=== PATIENT | male | born 1940 | race Caucasian/White ===

== ENCOUNTER 2018-01-30 17:36 | Observation (INO) | payer OTHER ==
[2018-01-30] MEDS ORDERED: ACETAMINOPHEN 325 MG TAB ONE (17:55)
[2018-01-30] MEDS ORDERED: ACETAMINOPHEN 325 MG TAB PO ONE (17:58)
[2018-01-30] MEDS ORDERED: NS 1,000 ML IV ONE ×2 (17:58→19:01)
--- NOTE | 2018-01-30 18:01 | EDPHY ---
H & P Time Seen by Provider: 01/30/18 17:47 HPI/ROS: CHIEF COMPLAINT: Generalized weakness HISTORY OF PRESENT ILLNESS: 77-year-old male presents with generalized weakness. Onset of generalized weakness, associated with confusion this morning. Difficulty walking because of generalized weakness and underlying gait disturbance. Associated with decreased oral intake. The symptoms have been persistent today. No recent cough, URI, chest pain, abdominal pain or shortness of breath. History of a shuffling gait, on levodopa. REVIEW OF SYSTEMS: complete 10 point ROS reviewed and is negative except at noted in the HPI Exam Limitations: Clinical condition - Social History Alcohol Use: Sober Drug Use: None Additional Social History: Lives in own home with - Physical Exam Exam: General Appearance: Alert, confused, ill-appearing Eyes: Pupils equal and round, no conjunctival pallor ENT, Mouth: Mucous membranes dry Neck: Normal inspection Respiratory: Tachypnea, Lungs are clear to auscultation Cardiovascular: Regular tachycardia Gastrointestinal: Abdomen is soft and nontender Neurological: A&O, nonfocal exam Skin: Warm and dry, no rash Extremities: Normal inspection, no tenderness Psychiatric: Flat affect Constitutional: Initial Vital Signs Temperature (C) 38.4 C H 01/30/18 17:55 Heart Rate 119 H 01/30/18 17:55 Respiratory Rate 30 H 01/30/18 17:55 Blood Pressure 145/95 H 01/30/18 17:55 O2 Sat (%) 93 01/30/18 17:55 O2 Delivery Mode Room Air Allergies/Adverse Reactions: No Known Allergies Allergy (Unverified 01/30/18 18:03) Home Medications: Medication Instructions Recorded QUEtiapine FUMARATE 01/30/18 Sinemet 10/100 MG (*) 01/30/18 ZOLPIDEM TARTRATE 01/30/18 Medical Decision Making - Diagnostics EKG Interpretation: EKG interpreted by me reveals sinus tachycardia, rate 123,, slight ST segment depression laterally, significant artifact present. Interpretation: Borderline EKG Imaging Results: Imaging Impressions Chest X-Ray 01/30/18 17:58 Impression: Bibasilar atelectasis. No pneumonia or effusion. ED Course/Re-evaluation: This patient presents with fever, confusion and tachycardia. IV normal saline 1 L and Tylenol 650 mg orally given. No localizing signs of infection on exam. I-STAT lactate is normal. Remains tachycardic after the 1st L of normal saline. A 2nd L of normal saline given. Chest x-ray independently reviewed by me reveals no acute disease and dip urinalysis is negative. The patient was reassessed and is clearly better after defervesced since and IV fluids. Heart rate is in the 90s, blood pressure normal, afebrile. No longer confused. However, he remains a fall risk, given underlying gait abnormality and febrile illness. Discussed with the patient and his family, feel that he would be a fall risk at home. Will admit for observation overnight. No antibiotics given , given lack of unclear etiology of fever. Hospitalist service was consulted for admission. Differential Diagnosis: Differential diagnosis includes pyelonephritis, cholecystitis, influenza, cellulitis, pneumonia, abscess, meningitis. - Data Points Laboratory Results: Laboratory Results 01/30/18 17:50 01/30/18 17:50 01/30/18 01/30/18 01/30/18 19:30 17:50 17:50 WBC RBC Hgb Hct MCV MCH MCHC RDW Plt Count MPV Neut % (Auto) Lymph % (Auto) Gates % (Auto) Eos % (Auto) Baso % (Auto) Nucleat RBC Rel Count Absolute Neuts (auto) Absolute Lymphs (auto) Absolute Monos (auto) Absolute Eos (auto) Absolute Basos (auto) Absolute Nucleated RBC Immature Gran % Immature Gran # RBC/WBC/PLT Morphology Platelet Estimate PT 14.7 SEC SEC (12.0-15.0) INR 1.13 (0.83-1.16) APTT 30.3 SEC SEC (23.0-38.0) D-Dimer Pending VBG Lactic Acid Sodium Potassium Chloride Carbon Dioxide Anion Gap BUN Creatinine Estimated GFR Glucose Calcium Total Bilirubin Urine Color ANAND Urine Appearance HAZY Urine pH 5.0 (5.0-7.5) Ur Specific [place] 1.027 (1.002-1.030) Urine Protein 2+ H (NEGATIVE) Urine Ketones TRACE H (NEGATIVE) Urine Blood NEGATIVE (NEGATIVE) Urine Nitrate NEGATIVE (NEGATIVE) Urine Bilirubin NEGATIVE (NEGATIVE) Urine Urobilinogen 4.0 EU H EU (0.2-1.0) Ur Leukocyte Esterase NEGATIVE (NEGATIVE) Urine RBC Pending Urine WBC Pending Ur Epithelial Cells Pending Urine Glucose NEGATIVE (NEGATIVE) 09/13/18 09/13/18 09/13/18 17:50 17:50 17:50 WBC 6.87 10^3/uL 10^3/uL (3.80-9.50) RBC 6.10 10^6/uL 10^6/uL (4.40-6.38) Hgb 17.8 g/dL H g/dL (13.7-17.5) Hct 51.3 % H % (40.0-51.0) MCV 84.1 fL fL (81.5-99.8) MCH 29.2 pg pg (27.9-34.1) MCHC 34.7 g/dL g/dL (32.4-36.7) RDW 13.2 % % (11.5-15.2) Plt Count 191 10^3/uL 10^3/uL (150-400) MPV 11.2 fL fL (8.7-11.7) Neut % (Auto) 89.9 % H % (39.3-74.2) Lymph % (Auto) 4.9 % L % (15.0-45.0) Gates % (Auto) 4.5 % % (4.5-13.0) Eos % (Auto) 0.0 % L % (0.6-7.6) Baso % (Auto) 0.3 % % (0.3-1.7) Nucleat RBC Rel Count 0.0 % % (0.0-0.2) Absolute Neuts (auto) 6.18 10^3/uL 10^3/uL (1.70-6.50) Absolute Lymphs (auto) 0.34 10^3/uL L 10^3/uL (1.00-3.00) Absolute Monos (auto) 0.31 10^3/uL 10^3/uL (0.30-0.80) Absolute Eos (auto) 0.00 10^3/uL L 10^3/uL (0.03-0.40) Absolute Basos (auto) 0.02 10^3/uL 10^3/uL (0.02-0.10) Absolute Nucleated RBC 0.00 10^3/uL 10^3/uL (0-0.01) Immature Gran % 0.4 % % (0.0-1.1) Immature Gran # 0.03 10^3/uL 10^3/uL (0.00-0.10) RBC/WBC/PLT Morphology TNP Platelet Estimate TNP PT INR APTT D-Dimer VBG Lactic Acid 1.7 mmol/L mmol/L (0.7-2.1) Sodium 135 mEq/L mEq/L (135-145) Potassium 4.0 mEq/L mEq/L (3.3-5.0) Chloride 103 mEq/L mEq/L (97-110) Carbon Dioxide 18 mEq/l L mEq/l (22-31) Anion Gap 14 mEq/L mEq/L (8-16) BUN 20 mg/dL mg/dL (7-23) Creatinine 1.1 mg/dL mg/dL (0.7-1.3) Estimated GFR > 60 Glucose 137 mg/dL H mg/dL (70-100) Calcium 9.5 mg/dL mg/dL (8.5-10.4) Total Bilirubin 1.3 mg/dL mg/dL (0.1-1.4) Urine Color Urine Appearance Urine pH Ur Specific [place] Urine Protein Urine Ketones Urine Blood Urine Nitrate Urine Bilirubin Urine Urobilinogen Ur Leukocyte Esterase Urine RBC Urine WBC Ur Epithelial Cells Urine Glucose Medications Given: Discontinued Medications Acetaminophen (Tylenol) 650 mg PO EDNOW ONE Stop: 01/30/18 17:59 Last Admin: 01/30/18 18:01 Dose: 650 mg Sodium Chloride (Ns) 1,000 mls @ 0 mls/hr IV ONCE ONE; Wide Open PRN Reason: Protocol Stop: 01/30/18 17:59 Last Admin: 01/30/18 18:02 Dose: 1,000 mls Sodium Chloride (Ns) 1,000 mls @ 0 mls/hr IV ONCE ONE; Wide Open PRN Reason: Protocol Stop: 01/30/18 19:02 Last Admin: 01/30/18 19:13 Dose: 1,000 mls Departure - Departure Disposition: [facility] Acute Clinical Impression: Febrile illness, acute, Confusion Condition: Fair
[2018-01-30 18:11] LABS: PLATELET COUNT 191 10^3/uL (150-400)
[2018-01-30 18:27] LABS: INR 1.13 (0.83-1.16); PROTIME(PATIENT) 14.7 SEC (12.0-15.0)
--- NOTE | 2018-01-30 19:29 | CPEKG ---
Test Reason : OPEN Blood Pressure : / mmHG Vent. Rate : 123 BPM Atrial Rate : 125 BPM P-R Int : 165 ms QRS Dur : 092 ms QT Int : 310 ms P-R-T Axes : 064 026 -34 degrees QTc Int : 444 ms Sinus tachycardia Probable left atrial enlargement significant artifact Confirmed by Marbella Mix ([id number]) on 01/30/2018 7:29:23 PM Referred By: Confirmed By:Marbella Mix
[2018-01-30] MEDS ORDERED: IOPAMIDOL (ISOVUE 370) 100 ML BTL IV ONE (20:42)
--- NOTE | 2018-01-30 22:19 | SOAPPROG ---
SOAP Progress Note Assessment/Plan: Assessment: Plan: 01/30/18 22:35 Fever, confusion, weakness: resolved following fluids, tylenol, so possibly related to dehydration. No suggestion infection, PE. Will observe and recheck CBC, BMP in morning. Elevated d-dimer: neg CTA chest. Will check doppler US of legs in morning. Cystic hepatic lesion on CT: incompletely visualized on CT. Asymptomatic. Will check office chart to see if this has been noted before. Parkinsonian syndrome: Has had shuffling gait for a year, and problems with dizziness and balance for at least [address] Tobar. Per family, no symptom improvement with Sinemet. Helped most by PT. Hypertension: recently started on irbesartan Insomnia: on zolpidem, quetiapine, melatonin DVT prophylaxis: SCDs Dispo: admit to observation. If remains stable, likely home tomorrow. 01/30/18 22:49 01/30/18 23:02 Subjective: 77 yo male with hx Parkinsonian syndrome, hypertension, insomnia brought to ED by family because he has felt weak, wobbly and confused all day. Not able to sit up or stand without help, gait was very shuffling, balance off. [place] weak all over. Couldn't find words, remember what he'd eaten. Couldn't follow commands, didn't know date. Had some SOB with minimal exertion. Appetite poor and didn't eat much. In the ED, he was febrile to 38.4 C, tachycardic, confused. BP mildly elevated, no hypoxia. WBC normal but with 90% neutrophils. CMP normal except low HCO3 of 18. Lactic acid 1.7. D-dimer elevated at 1.6. UA positive for protein. Coags normal. Blood cx drawn. CXR without pneumonia. CTA of chest negative for PE. Cystic lesion on L hepatic lobe incompletely visualized. Pt given 2 L NS and tylenol. Fever resolved, confusion resolved and is mentating normally per family. Doesn't feel so weak. He is being admitted to obs to make sure this resolution is complete, given his initial presentation. Objective: Vital Signs Temp Pulse Resp BP Pulse Ox 36.5 C 93 114 H 128/81 H 95 01/30/18 21:27 01/30/18 21:27 01/30/18 21:27 01/30/18 21:27 01/30/18 21:27 01/29/18 01/30/18 01/31/18 05:59 05:59 05:59 Intake Total 1999 Balance 1999 PT 14.7 SEC (12.0-15.0) 01/30/18 17:50 INR 1.13 (0.83-1.16) 01/30/18 17:50 General: lying in bed, comfortable, alert, joking with family HEENT: PERRL, EOMI. O/P moist Neck: supple, no masses, adenopathy, thyromegaly Lungs: clear bilaterally Cardiovascular: RRR without murmur Abdomen: +bowel sound, soft, NT. No hepatosplenomegaly, masses Skin: warm, dry, no lesions Musculoskeletal: no deformities, joint swelling or warmth Extremities: no clubbing, cyanosis, edema Neurologic: alert, oriented, no confusion. Priscila, gait not assessed Psychiatric: normal mood, affect ICD10 Worksheet Patient Problems: Problems Problem Status Onset Confusion Acute Febrile illness, acute Acute
[2018-01-30] MEDS ORDERED: Melatonin [Melatonin] 10 MG PO PRN (22:23)
[2018-01-30] MEDS ORDERED: ONDANSETRON DISINTEGRATING 4 MG TAB PO PRN (22:30)
[2018-01-30] MEDS ORDERED: ONDANSETRON 4 MG/2 ML VIAL IVP PRN (22:30)
[2018-01-30] MEDS ORDERED: QUEtiapine FUMARATE 50 MG TAB PO SCH (22:47)
[2018-01-30] MEDS: ACETAMINOPHEN 325 MG TAB PO PRN (23:20)
--- NOTE | 2018-01-30 23:40 | GHP ---
DATE OF ADMISSION: 01/30/2018 HISTORY OF PRESENT ILLNESS: The patient is a 77-year-old male with a history of parkinsonian syndrome, hypertension, and insomnia who was brought to the emergency department by his family this evening because he has felt weak, wobbly , and confused all day. He has not been able to sit up or stand without help, his gait has been very shuffling, much more so than usual, and his balance has been off. He has felt weak all over. He has had difficulty finding words, could not remember what he had eaten. He could not follow commands, did not know the date. He has had some shortness of breath with minimal exertion. His appetite has been poor and he has not eaten much. In the emergency department he was febrile to 38.4 degrees centigrade, tachycardic, and confused. His blood pressure was mildly elevated. He was not hypoxic. White blood cell count was normal, but with 90% neutrophils. CMP was normal except for a low bicarb of 18. Lactic acid was normal at 1.7. D-dimer was elevated at 1.6. Urinalysis was positive for protein. His coags were normal. Blood cultures were drawn. Chest x-ray was negative for pneumonia. A CT angiogram of his chest was negative for pulmonary embolism. He had a cystic lesion on the left hepatic lobe that was incompletely visualized on the CAT scan. He was treated with 2 L of normal saline and Tylenol. His fever resolved as did his confusion and at this point, he is mentating normally according to his family. He also does not feel so weak. He is being admitted to observation to make sure that this resolution is complete, given his initial presentation. PAST MEDICAL HISTORY: Erectile dysfunction, hyperlipidemia, hypertension, pneumonia, atherosclerosis by heart scan, herpes, insomnia, elevated PSA, parkinsonian syndrome, vitamin D deficiency. MEDICATIONS: Melatonin, irbesartan 150 mg daily, zolpidem 10 mg at bedtime, quetiapine 50 mg at bedtime, Sinemet 25/100 one 3 times daily. ALLERGIES: Lunesta causes dizziness. Lisinopril causes cough. SURGICAL HISTORY: Not documented. FAMILY HISTORY: Noncontributory. SOCIAL HISTORY: The patient is . He is retired. He drinks alcohol occasionally. He is a nonsmoker. He exercises regularly. He has several children. REVIEW OF SYSTEMS: IN GENERAL: Until today, no fever or chills. HEENT: No rhinitis or sore throat. No ear pain. RESPIRATORY: No cough. No shortness of breath except for today. No pleuritic chest pain. CARDIOVASCULAR: No chest pain. No irregular rhythms. No edema. Tachycardic today, but that is not usual for him. GI: He felt nauseated in the emergency department after being given Tylenol. No vomiting, diarrhea, or constipation. No heartburn or abdominal pain. : No dysuria or hematuria. NEUROLOGIC: Confused today, but that is not usual for him. Increased gait and balance difficulty over baseline. Headache today also unusual for him. No numbness or tingling. Memory is fairly good with some short-term deficits. PSYCHIATRIC: No depression or anxiety. VITAL SIGNS: Temperature 36.5, pulse 93, blood pressure 128/81, oxygen saturation 95% on room air. PHYSICAL EXAM: IN GENERAL: He is lying in bed, comfortable, alert, joking with his family. HEENT: Pupils are equal, round, reactive to light. Extraocular movements are intact. Oropharynx is moist. NECK: Supple without masses or adenopathy. No thyromegaly. LUNGS: Clear bilaterally. CARDIOVASCULAR: Regular rate and rhythm without murmur. ABDOMEN: Normal bowel sounds. Soft and nontender. No hepatosplenomegaly or masses. SKIN: Warm and dry with no lesions. MUSCULOSKELETAL: No deformities, joint swelling , or warmth. EXTREMITIES: No clubbing, cyanosis, or edema. NEUROLOGIC: He is alert and oriented. No confusion. He is moving all extremities. Gait was not assessed. PSYCHIATRIC: Normal mood and affect. ASSESSMENT AND PLAN: 1. Fever, confusion, weakness: This is resolved following fluids and Tylenol, so possibly related to dehydration. No suggestion of infection or pulmonary embolism. We will observe and recheck CBC, BMP in the morning. 2. Elevated D-dimer, negative CT angiogram of the chest. Will check Doppler ultrasound of his legs in the morning. 3. Cystic hepatic lesion on CT scan, incompletely visualized. He is currently asymptomatic, so I will check his office chart to see if this has been noted previously. 4. Parkinsonian syndrome. He has had a shuffling gait for approximately a year and problems with dizziness and balance for at least 3 months. He has seen Dr. Tobar, who prescribed Sinemet, but per his family, he really has not had much improvement with this. He has been helped most by physical therapy. 5. Hypertension. He was recently started irbesartan. 6. Insomnia on zolpidem, quetiapine, and melatonin. 7. Deep venous thrombosis prophylaxis. Sequential compression devices. DISPOSITION: Admit to observation. If he remains stable, likely home tomorrow. /[id number]/MODL MTDD
[2018-01-31] MEDS: ZOLPIDEM TARTRATE 5 MG TAB PO SCH ×2 (05:26→21:23)
[2018-01-31 06:05] LABS: PLATELET COUNT 150 10^3/uL (150-400)
--- NOTE | 2018-01-31 08:29 | SOAPPROG ---
SOAP Progress Note Assessment/Plan: Assessment: Robi is a 77 yo male who presented last evening for weakness and confusion. He was febrile on admission and was given 2L IVF in the ED. His AMS and weakness improved significantly with the IVF and his fever subsided with tylenol. His labs demonstrated an elevated ddimer and f/u CT angio and BLE US were negative for clots. WBC count was NL on labs, though he had elevated neutrophils. Resp panel negative. UA negative. Blood cultures pending. CXR negative. CT did show a cystic hepatic lesion which was incompletely visualized. Plan: Fever, AMS, weakness: resolved in the ED with IVF, possibly due to dehydration. Pt is alert and answering questions appropriately this AM. Will see how the AM goes, have breakfast, up ambulate, work with PT. If feeling okay later this AM can d/c home with f/u in the office at the beginning of the week Elevated D-dimer: CT angio neg for PE, BLE US neg for DVT. Cystic hepatic lesion on CT: will check office chart to see if this has been evaluated previously. If not, will order f/u imaging Parkinsonian syndrome: currently on Sinmet being followed by Dr. Tobar HTN: irbesartan Insomnia: zolpidem, quetiapine, melatonin DVT prophylaxis: SCDs Dispo: would like him to have breakfast, get up and move around, work with PT. If he is feeling okay later this AM d/c home with f/u in the office at the beginning of next week. 01/31/18 08:29 Subjective: Robi is resting in bed this AM. He says he is feeling pretty good, eager to order breakfast. Objective: Vital Signs Temp Pulse Resp BP Pulse Ox 36.8 C 93 16 98/64 L 90 L 01/31/18 08:00 01/31/18 08:00 01/31/18 08:00 01/31/18 08:00 01/31/18 08:00 Microbiology 01/30/18 21:16 Respiratory Panel (PCR) - Final Nasal, Sinus - Swab No Organism Detected Laboratory Results 01/31/18 05:40 01/31/18 05:40 01/30/18 01/31/18 02/01/18 05:59 05:59 05:59 Intake Total 1999 Balance 2000 PT 14.7 SEC (12.0-15.0) 01/30/18 17:50 INR 1.13 (0.83-1.16) 01/30/18 17:50 Gen- alert, able to tell me date, president and recall current situation, vitals stable Head- normocephalic, atraumatic EENT- PEERL, EOMI CV- S1S2, RRR, no murmurs, rubs, gallops Resp- LCTAB, no wheezing, rhonchi, rales Abd- SNT, nondistended, + bs Extremities- no peripheral edema, + pedal pulses Skin- warm and dry ICD10 Worksheet Patient Problems: Problems Problem Status Onset Confusion Acute Febrile illness, acute Acute
[2018-01-31] MEDS: CARBIDOPA/LEVODOPA 25 MG/100 MG TAB PO SCH ×3 (09:03→21:22)
[2018-01-31] MEDS: IRBESARTAN 150 MG TAB PO SCH (13:04)
[2018-01-31] MEDS: ACETAMINOPHEN 325 MG TAB PO PRN (13:42)
[2018-01-31] MEDS ORDERED: NS 1,000 ML IV SCH (14:30)
--- NOTE | 2018-01-31 16:06 | ASMTCMCOM ---
CM Note CM Note Notes: Pt admitted for fever, confusion, and worsening Parkinsonian symptoms. He lives at home w/his and his adult children are close and can stay with him. PT recommends SNF but pt and family leaning towards home w/ home care and 24hr care if they can manage that. Pt has spiked a fever and was not available to talk. Family to discuss options, CM w/f. DC Plan: TBD Date Signed: 01/31/2018 04:01 PM Electronically Signed By:Mee Esqueda RN
[2018-01-31] MEDS ORDERED: QUEtiapine FUMARATE 50 MG TAB PO SCH (21:00)
[2018-01-31] MEDS ORDERED: NON-FORMULARY NEW DRUG (Zolpidem Tartrate [Zolpidem Tartrate] 10 MG) PO SCH (21:00)
[2018-02-01] MEDS: ACETAMINOPHEN 325 MG TAB PO PRN (00:07)
[2018-02-01 05:54] LABS: PLATELET COUNT 123 10^3/uL (150-400)
[2018-02-01 08:43] VITALS: BP 139/91
[2018-02-01] MEDS: IRBESARTAN 150 MG TAB PO SCH (10:02)
[2018-02-01] MEDS: CARBIDOPA/LEVODOPA 25 MG/100 MG TAB PO SCH (10:02)
--- NOTE | 2018-02-01 10:52 | GDS ---
ADMISSION DIAGNOSIS: Fever, confusion. DISCHARGE DIAGNOSIS: Acute confusion, possibly viral, rule out prostatitis. HOSPITAL COURSE: Patient was admitted with fever and confusion. EKG, chest x-ray, and CT pulmonary angiogram were normal. He had low-grade fevers during the hospitalization. His confusion cleared. His strength returned to baseline. His clarity returned to baseline. Of interest, however, his init ial urinalysis had 1-3 white blood cells and 2+ protein. He has a history of a [id number] el evated PSA. Blood cultures were negative. CBC, however, showed a white count that was normal, howev er, the platelet count diminished a little bit during the course of hospitalization, although it star dario off at 191,000, time of discharge down to 123,000. It is felt that he likely had a viral syndrom e that would be responsibility for his symptoms and this observation. However, he also did have a le ft shift on his differential, which has been concerning regarding an occult bacterial infection. How ever, without treatment, he returned to baseline only having low-grade nighttime fevers. We will sandra ck a PSA and repeat urine and urine culture. He will follow up with Derrick Finch on Saturday. He kenzie l call sooner if he has any intervening symptoms. MEDICATIONS AT TIME OF DISCHARGE: Zolpidem 10 mg at bedtime, quetiapine 50 mg at bedtime, Avapro 150 mg daily, carbidopa levodopa 25/100 three times daily, melatonin 10 at bedtime. /[id number]/MODL
--- NOTE | 2018-02-01 13:30 | ASDISCHSUM ---
Discharge Information Plan Status:Home with No Needs Medically Cleared to Leave:02/01/2018 Discharge Date:02/01/2018 01:08 PM CM D/C Disposition:Home, Routine, Self-Care ADT D/C Disposition:Home, Routine, Self-Care Projected Discharge Date:02/01/2018 01:08 PM Transportation at D/C: Discharge Delay Reason: Follow-Up Date:02/01/2018 01:08 PM Discharge Slot: Final Diagnosis: Placement Information Patient Contact Information Contact Name:EPI Relationship: Address:[address] [facility] Work Phone: City:[place] Alternate Phone: State/Zip Code:[place] [address] Email: Financial Information Financial Class:Medicare Advantage Plans Primary Plan Desc:[facility] ADV[employer]AGE PLANS Primary Plan Number:[id number] Secondary Plan Desc: Secondary Plan Number: Assessment Information BC CM Progress Note CM Note CM Note Notes: Pt admitted for fever, confusion, and worsening Parkinsonian symptoms. He lives at home w/his and his adult children are close and can stay with him. PT recommends SNF but pt and family leaning towards home w/ home care and 24hr care if they can manage that. Pt has spiked a fever and was not available to talk. Family to discuss options, CM w/f. DC Plan: TBD Date Signed: 01/31/2018 04:01 PM Electronically Signed By:Mee Esqueda RN Intervention Information
--- NOTE | 2018-02-01 16:32 | ASMTDCNOTE ---
Case Management Discharge Discharge Order Complete? Answers: Yes Patient to Obtain Answers: via Family Medications Transportation Arranged Answers: Family/Friends Family Notified Answers: Yes Notes: family in room Discharge Comments Notes: Spoke with pt and family in the room prior to d/c. Pt lives with and son and daughter are also available to be helpful to family. Pt has 10/12 private care as well. Family feels current care situation is adequate. No further CM noted at this time. CM available should this change. D/C Plan: Home with 10/12 supervision by family and private care Date Signed: 02/01/2018 04:32 PM Electronically Signed By:Marta Momin
--- NOTE | 2018-02-01 20:45 | PDIAF ---
- Diagnosis Code Status: Full Code - Medication Management Discharge Medications: Medications to Continue on Transfer Carbidopa/Levodopa 25/100Mg [Sinemet 25/100 MG (*)] 1 tab PO TID 01/30/18 [Last Taken Unknown] Irbesartan [Avapro 150 mg (*)] 150 mg PO DAILY 01/30/18 [Last Taken Unknown] Melatonin 10 mg PO HS PRN 01/30/18 [Last Taken Unknown] QUEtiapine FUMARATE [Seroquel 50 mg (*)] 50 mg PO HS 01/30/18 [Last Taken Unknown] Zolpidem Tartrate 10 mg PO HS 01/30/18 [Last Taken Unknown] Acetaminophen [Tylenol 325mg (*)] 650 mg PO Q4HRS PRN tab 02/01/18 [Last Taken Unknown] Discharge Medications: Refer to the Discharge Home Medication list for PRN reason. PICC Care - Routine: N/A - Orders Services needed: Home Care, Physical Therapy, Occupational Therapy Home Care Face to Face: I certify that this patient was under my care and that I had the required [id number] encounter meeting the encounter requirements on the discharge day. My findings support the fact that the patient is homebound as defined in Home Care Face to Face Continued: CMS Chapter 7 Medicare Benefits Manual 30.1.1 , The condition of the patient is such that there exists a normal inability to leave home and consequently, leaving home would require a considerable and taxing effort. Isolation Type: None Diet Recommendation: no restrictions on diet Additional Instructions: Follow up with Derrick Finch on Saturday. - Follow Up Care Current Providers and Referrals: Derrick Finch PA [Primary Care Provider] -
== END 2018-02-01 13:08 | disposition home or self-care (01) ==
LOC: F3E 21:40
PROVIDERS: ADMIT Internal Medicine; ATTEND Internal Medicine
DX: R50.9 Fever, unspecified (principal); R41.0 Disorientation, unspecified; E86.9 Volume depletion, unspecified; R97.20 Elevated prostate specific antigen [PSA]; G20 Parkinson's disease; I10 Essential (primary) hypertension; G47.00 Insomnia, unspecified
CPT/HCPCS: 71046; 71275; 76700; 93005; 93970; 96360; 96361; 97116; 97162; 97166; 99285; G0378; G8978; G8979; G8980; G8987; G8988; G8989; Q9967

== ENCOUNTER → 2018-03-02 | Outpatient (CLI) | payer OTHER | LOC: FCPNEURO 21:00 | PROVIDERS: ATTEND Psychiatry & Neurology Sleep Medicine | DX: G47.33 Obstructive sleep apnea (adult) (pediatric) (principal); G47.31 Primary central sleep apnea ==